=== PATIENT | female | born 1995 | race African-American/Black ===

== ENCOUNTER 2019-01-13 02:29 | Emergency (ER) | payer OTHER ==
[~2019-01-13] VITALS: Ht 167.6 cm; Wt 56.7 kg
--- NOTE | 2019-01-13 02:41 | NUR ---
Dr. Woody at bedside for MSE.
--- NOTE | 2019-01-13 02:41 | NUR ---
Pt provided urine sample, sent to lab.
[2019-01-13] MEDS ORDERED: ONDANSETRON 4 MG/2 ML VIAL IV ONE (02:45)
[2019-01-13] MEDS ORDERED: HYDROMORPHONE 1 MG/1 ML DISP.SYRIN IV ONE (02:45)
[2019-01-13] MEDS ORDERED: PANTOPRAZOLE SODIUM 40 MG VIAL IV ONE (02:45)
[2019-01-13] MEDS ORDERED: IV NORMAL SALINE 1000 ML BAG IV ONE (02:45)
[2019-01-13] MEDS ORDERED: ONDANSETRON 4 MG/2 ML VIAL ONE (02:50)
[2019-01-13] MEDS ORDERED: HYDROMORPHONE 1 MG/1 ML DISP.SYRIN ONE (02:50)
[2019-01-13] MEDS ORDERED: PANTOPRAZOLE SODIUM 40 MG VIAL ONE (02:50)
[2019-01-13 02:52] LABS: *BILIRUBIN,URIN NEGATIVE (NEGATIVE); *BLOOD, URINE NEGATIVE (NEGATIVE); *CLARITY,URINE CLEAR (CLEAR); *COLOR,URINE YELLOW (YELLOW); *KETONES,URINE 3+ (NEGATIVE); *UROBILINOGEN,URINE 0.2 E.U./dl (NORMAL); LEUKOCYTE ESTERASE ,URINE NEGATIVE (NEGATIVE); NITRITE, URINE NEGATIVE (NEGATIVE); UGLUCOSE NEGATIVE (NEGATIVE)
[2019-01-13 02:58] LABS: BASOPHILS % (AUTO) 0.3 % (0.0-2.0); HEMATOCRIT 43.8 % (31.2-41.9); HEMOGLOBIN 14.7 g/dL (10.9-14.3); LYMPHOCYTES # (AUTO) 1.5 K/uL (20.0-40.0); LYMPHOCYTES % (AUTO) 9.5 % (20.5-51.5); MEAN CORPUSCULAR HEMOGLOBIN 31.4 uug (24.7-32.8); MEAN CORPUSCULAR HGB CONC 34 g/dL (32.3-35.6); MEAN CORPUSCULAR VOLUME 93.5 fL (75.5-95.3); MONOCYTES # (AUTO) 0.4 K/uL (2.0-10.0); MONOCYTES % (AUTO) 2.9 % (0.0-11.0); NEUTROPHILS # (AUTO) 13.5 K/uL (1.8-8.9); NEUTROPHILS % (AUTO) 87.3 % (38.5-71.5); PLATELET COUNT (AUTO) 188 K/uL (179-408); RED BLOOD CELL COUNT(AUTO) 4.69 MIL/uL (3.63-4.92); WHITE BLOOD COUNT (AUTO) 15.4 K/uL (3.8-11.8)
[2019-01-13 03:00] LABS: RBC,URINE 0-3 /HPF (0-3); WBC,URINE 0-3 /HPF (0-3)
[2019-01-13 03:01] LABS: BACTERIA,URINE FEW /HPF (NONE SEEN); SQUAMOUS EPITHELIAL CELL,UR MANY /HPF (NONE SEEN)
[2019-01-13 03:07] LABS: POTASSIUM 3.7 mmol/L (3.5-5.1)
[2019-01-13 03:13] LABS: BILIRUBIN,DIRECT 0.2 mg/dL (0.0-0.2); BILIRUBIN,TOTAL 0.3 mg/dL (0.2-1.0); TOTAL PROTEIN, SERUM 8.5 g/dL (6.4-8.2)
--- NOTE | 2019-01-13 03:44 | NUR ---
Patient discharged to home in stable conditon. Written and verbal after care instructions given. Patient verbalizes understanding of instructions. Pt ambulated out of ER with steady gait, no acute signs of distress, all belongings taken, IV site discontinued, instructed not to drive, to be driven home by friend via private vehicle.
[2019-01-13 03:46] VITALS: BP 124/73
== END 2019-01-13 03:46 | disposition home or self-care (01) ==
LOC: ER 02:33
DX: K29.70 Gastritis, unspecified, without bleeding (principal)
CPT/HCPCS: 36415; 80048; 80076; 81001; 83690; 84702; 85025; 96361; 96374; 96375; 99283; C9113; J1170; J2405; A4663; J7030

== ENCOUNTER 2019-01-13 12:19 | Emergency (ER) | payer OTHER ==
[~2019-01-13] VITALS: Ht 167.6 cm; Wt 56.7 kg
--- NOTE | 2019-01-13 12:28 | NUR ---
PT A/OX4, PRESENTS TO THE ER C/O EPIGASTRIC PAIN. PT WAS SEEN IN THIS ER EARLIER THIS AM AND DX W/ DIAGNOSIS OF GASTRITIS. PT REPORTS PAIN IS NON-PROVOKED, CRAMPING IN QUALITY, DOES NOT RADIATE, 8/10, CONSTANT. VSS. SECONDARY COMPLAINT: NAUSEA. PT DENIES C/P, SOB, VOMITING, DIZZINESS, HEADACHE.
--- NOTE | 2019-01-13 13:08 | NUR ---
MONIQUE DIAZ AT BEDSIDE FOR MSE.
[2019-01-13] MEDS ORDERED: IV NORMAL SALINE 1000 ML BAG IV ONE (13:15)
[2019-01-13] MEDS ORDERED: METOCLOPRAMIDE HCL 10 MG/2 ML VIAL IV ONE (13:15)
[2019-01-13] MEDS ORDERED: KETOROLAC TROMETHAMINE 15 MG INJ IV ONE (13:15)
[2019-01-13] MEDS ORDERED: METOCLOPRAMIDE HCL 10 MG/2 ML VIAL ONE (13:21)
[2019-01-13] MEDS ORDERED: KETOROLAC TROMETHAMINE 15 MG INJ ONE (13:21)
[2019-01-13 13:29] LABS: BASOPHILS % (AUTO) 0.1 % (0.0-2.0); HEMATOCRIT 41.6 % (31.2-41.9); HEMOGLOBIN 13.8 g/dL (10.9-14.3); LYMPHOCYTES # (AUTO) 1.2 K/uL (20.0-40.0); MEAN CORPUSCULAR HEMOGLOBIN 31.1 uug (24.7-32.8); MEAN CORPUSCULAR HGB CONC 33 g/dL (32.3-35.6); MEAN CORPUSCULAR VOLUME 93.2 fL (75.5-95.3); MONOCYTES # (AUTO) 0.9 K/uL (2.0-10.0); MONOCYTES % (AUTO) 6.5 % (0.0-11.0); NEUTROPHILS # (AUTO) 12.4 K/uL (1.8-8.9); NEUTROPHILS % (AUTO) 85.4 % (38.5-71.5); PLATELET COUNT (AUTO) 165 K/uL (179-408); RED BLOOD CELL COUNT(AUTO) 4.46 MIL/uL (3.63-4.92); WHITE BLOOD COUNT (AUTO) 14.6 K/uL (3.8-11.8)
[2019-01-13] MEDS ORDERED: SWABABLE VALVE TRANSFER SET EA MC ONE (13:33)
[2019-01-13] MEDS ORDERED: IV NORMAL SALINE 250 ML IV ONE (13:33)
[2019-01-13] MEDS ORDERED: IOHEXOL 300MG/ML 100 ML INFUS..BTL ONE (13:33)
[2019-01-13 13:37] LABS: CREATININE 0.8 mg/dL (0.6-1.3); POTASSIUM 3.6 mmol/L (3.5-5.1)
[2019-01-13 13:43] LABS: BILIRUBIN,DIRECT 0.2 mg/dL (0.0-0.2); BILIRUBIN,TOTAL 0.5 mg/dL (0.2-1.0)
--- NOTE | 2019-01-13 13:54 | NUR ---
PT TAKEN TO RADIOLOGY FOT CT SCAN.
--- NOTE | 2019-01-13 15:14 | NUR ---
Patient discharged to home in stable conditon. Written and verbal after care instructions given. Patient verbalizes understanding of instructions. ALL BELONGINGS W/ PT. PT SELF-AMBULATED W/O DIFFICULTY. 18G IV ACCESS IN LAC REMOVED PRIOR TO D/C - INNER CANNULA INTACT.
[2019-01-13 15:16] VITALS: BP 121/70
== END 2019-01-13 15:19 | disposition home or self-care (01) ==
LOC: ER 12:19
DX: K85.90 Acute pancreatitis without necrosis or infection, unspecified (principal)
CPT/HCPCS: 36415; 74177; 80048; 80076; 83690; 84702; 85025; 96374; 96375; 99284; J1885; J2765; Q9967; A4663; J7030; J7050